=== PATIENT | male | born 1970 | race Caucasian/White ===

== ENCOUNTER 2020-05-02 12:40 | Emergency (ER) | payer OTHER ==
[~2020-05-02] VITALS: Ht 170.2 cm; Wt 99.8 kg
[~2020-05-02 12:40] MED LIST: GARAMYCIN5 M1 OP; MOBIC15 MG PO; NORCO 5-325 TA1 EACH PO
[2020-05-02] MEDS ORDERED: NORCO 10-325 T1 EACH PO (15:40)
[2020-05-02 16:31] VITALS: BP 134/75
== END 2020-05-02 16:31 | disposition home or self-care (01) ==
LOC: ER 12:40
DX: S82.52XA Displaced fracture of medial malleolus of left tibia, initial encounter for closed fracture (principal); S82.402A Unspecified fracture of shaft of left fibula, initial encounter for closed fracture; Z88.8 Allergy status to other drugs, medicaments and biological substances; W17.89XA Other fall from one level to another, initial encounter; Y93.89 Activity, other specified; Y92.89 Other specified places as the place of occurrence of the external cause; Y99.0 Civilian activity done for income or pay